=== PATIENT | male | born 1975 | race Caucasian/White ===

== ENCOUNTER 2021-04-05 21:41 | Emergency (ER) | payer OTHER ==
[~2021-04-05] VITALS: Ht 180.3 cm; Wt 102.0 kg
[~2021-04-05 21:41] MED LIST: KEFLEX500 MG PO; NORCO 5-325 TA1 EACH PO; TRAMADOL HCL50 MG PO; VALIUM5 MG PO
[2021-04-05] MEDS ORDERED: HYDROCODON-ACE1 EA10 PO (23:12)
== END 2021-04-05 23:27 | disposition home or self-care (01) ==
LOC: ED 21:41
DX: S30.811A Abrasion of abdominal wall, initial encounter (principal); S70.211A Abrasion, right hip, initial encounter; V29.9XXA Motorcycle rider (driver) (passenger) injured in unspecified traffic accident, initial encounter; Z23 Encounter for immunization; M10.9 Gout, unspecified
CPT/HCPCS: 71045; 72040; 73030; 73502; 81001; 90471; 90715; 99284-25